=== PATIENT | female | born 1990 | race Caucasian/White ===

== ENCOUNTER 2018-08-30 20:52 | Inpatient (IN) | payer MEDICAID ==
[~2018-08-30] VITALS: Ht 162.6 cm; Wt 73.8 kg
[~2018-08-30 20:52] MED LIST: IBUP-1542 PO
[2018-08-30] MEDS ORDERED: LACTATED RINGER'S 1,000 ML IV SCH (21:44)
[2018-08-30 21:46] VITALS: Ht 162.6 cm; Wt 73.8 kg
--- NOTE | 2018-08-30 23:12 | TRIAGE ---
OB Triage Datetime Report Generated by CPN: 08/30/2018 23:12 Datetime: 08/30/2018 23:12 Stage of : OB Triage Datetime: 08/30/2018 21:46 Labor Evaluation Frequency: 4-5 Monitor Mode: External Duration (sec)2399: 60 Pattern: Normal: <= 5 Contractions in 10 Minutes Heart Rate FHR Baseline Rate: 145 Monitor Mode: External US FHR Baseline Changes: No Baseline Change Variability: Moderate 6-25 bpm Datetime: 08/30/2018 21:05 EGA: 28.5 Datetime: 08/30/2018 20:40 Time of Arrival: 08/30/2018 20:40 Arrived By: Wheelchair Arrived From: Home Chief Complaint: UC'S SINCE 14:30 Movement: Present Contractions: Irregular Time Contractions Began: 08/30/2018 14:30 Contractions: Q30MIN Rupture of Membranes: Denies Vaginal Bleeding: None Vaginal Discharge: Denies Recent Sexual Intercouse: Denies Abdominal Trauma: Not Applicable Patient Complaints: Contractions Time Provider Notified: 08/30/2018 21:40 Provider Notified: KARI
[2018-08-30] MEDS ORDERED: AMPICILLIN 2 GM/NS (PMX) 100 ML IV ONE (23:30)
--- NOTE | 2018-08-30 23:55 | HP ---
Date/Time of Note Date/Time of Note DATE: 08/30/18 TIME: 23:53 OB - History Hx of Present Free Text/Dictation 28-year-old 2 para 1 at 28 weeks and 5 days of gestation with estimated date of delivery November 14, 2018 Patient presents with chief complaint of uterine contractions She reports positive movement, denies any vaginal bleeding or leaking fluid Estimated Due Date: Nov 14, 2018 : 2 Para: 1 Care: Good Care Obstetrical Complications: Other (Cervical shortening) Medical Complications: None Past Family/Social History * Past Medical, Surgical, Family and Obstetric Histories reviewed from chart. OB Admission Exam Physical Exam HEENT: WNL Heart: Rhythm Normal Lungs: Clear, Equal Abdomen: WNL Extremities: Normal Reflexes: Normal Membranes: Intact Heart Rate: 140's Accelerations: Accelerations Present Decelerations: No Decelerations Varibility: Moderate Contractions on Admission: 6-10 Minutes Apart Intensity: Mild Last 72 hours Lab Results CBC & BMP 08/30/18 23:30 PROCEDURE: US biophysical profile. Transvaginal sonography of the cervix. CLINICAL INDICATION: Decreased motion. TECHNIQUE: Multiple sonographic images of the uterus were obtained. Transvaginal sonography of the cervix was also performed. The images were reviewed on a PACS workstation. COMPARISON: No prior studies are available for comparison. FINDINGS: There is a single live intrauterine gestation. heart rate is 148 beats per minute. The position is cephalic. The placenta is anterior grade 1 with no abruption or previa. The ALVIN is 17.4 cm. (Normal = 5-20 cm.) Cervical length is 2.2 cm. Breathing Movement: 2 Gross Body Movement: 2 Tone: 2 Qualitative Amniotic Fluid Volume: 2 TOTAL: 8 IMPRESSION: 1. The biophysical score is 8/8. 2. Cervical length is 2.2 cm. RPTAT: QQ .Pastor Antunez MD, MD Date Time Electronically viewed and signed by .Pastor Antunez MD, on 08/30/2018 22:47 .R/ CC: ABHISHEK PIERCE MD [phone] OB Assessment/Plan Reason for admission: labor, other (Cervical shortening 2.2 cm) Other plan: Admit to antepartum Betamethasone for lung maturity Antibiotic prophylaxis Urine culture to be done Perinatology consult Copies To: CC: CIERRA WOLFE MD ; ABHISHEK PIERCE MD Aug 30, 2018 23:55
[2018-08-30] MEDS: BETAMET NA PHOS/AC(6 MG/ML) 2 ML INJ SYG IM SCH (23:56)
[2018-08-31] MEDS: AMPICILLIN 1 GM/NS (PMX) 50 ML IV SCH ×2 (04:29→08:15)
[2018-08-31] MEDS ORDERED: PRENATAL VITAMIN PO SCH (09:00)
--- NOTE | 2018-08-31 11:23 | PERINOTE ---
Date/Time of Note Date/Time of Note DATE: 08/31/18 TIME: 11:19 Assessment/Recommendations Other Assessments Suspected labor, now without regular contractions Shortened cervix Recommendations: I agree with the patient admission and steroid treatment. I would complete the course of betamethasone I would discontinue the ampicillin, as the patient does not seem close to delivery I feel that the patient can be discharged to home, I have discussed with her and her partner the importance of reduced activity I would consider a repeat cervical length if the patient again complains of contractions. I would consider referring the patient to the Perinatology Office for ultrasound for EFW (not performed on this admission), unless this has been recently done Note that records regarding this were not available. OB Subjective Free Text/Dictaton Patient is a 28 Yr Old at 28W6D of gestation admitted for suspected labor. Patient reports UCs last night at home that abated in the hospital. She was not treated with a tocolytic medication. Imaging revealed a cervical length of 2.2cm. The patient received one dose of betamethasone and the second is scheduled for later today. HD# 2 IUP @ 28W6D Current Medications Current Medications Lactated Ringer's 1,000 ml @ 125 mls/hr Q8H IV Last administered on 08/30/18at 23:29; Admin Dose 125 MLS/HR; Start 08/30/18 at 21:44 Betamethasone Acet/Betameth SodPhos (Celestone Soluspan) 12 mg Q24H IM Last administered on 08/30/18at 23:56; Admin Dose 12 MG; Start 08/30/18 at 23:30; Stop 08/31/18 at 23:31 Ampicillin 50 ml @ 100 mls/hr Q4H IV Last administered on 08/31/18at 08:15; Admin Dose 100 MLS/HR; Start 08/31/18 at 03:30 Prenat Multivit/ Pershing/Iron/Folic Ac () 1 tab DAILY PO ; Start 08/31/18 at 09:00 Past Medical History Medical History: no pertinent history Surgical History: no surgical history MANAGER MEDIA History: no pertinent MANAGER MEDIA history Para: 1 : 2 LMP (Females 10-50): Family History Significant Family History: no pertinent family hx OB Admission Exam Physical Exam Vitals: BP: 128/60 P: 103 Heart: Rhythm Normal Lungs: Clear Abdomen: WNL Heart Rate: 130's Accelerations: Accelerations Present Decelerations: No Decelerations Varibility: Moderate Contractions on Admission: None Last 72 hours Lab Results CBC & BMP 08/30/18 23:30 Liver Function Test 08/30/18 23:30 Alanine Aminotransferase (ALT/SGPT) 19 Albumin 3.7 Alkaline Phosphatase 91 Aspartate Amino Transf (AST/SGOT) 25 Direct Bilirubin 0.00 Total Protein 7.3 Ultrasound Results BP 8/8 on 08/30 Copies To: CC: CIERRA WOLFE MD; ABHISHEK PIERCE MD ; KATYA STALEY MD Aug 31, 2018 11:23
[2018-08-31] MEDS ORDERED: ACETAMINOPHEN 325 MG TAB PO ONE (19:00)
[2018-08-31] MEDS: BETAMET NA PHOS/AC(6 MG/ML) 2 ML INJ SYG IM SCH (23:00)
--- NOTE | 2018-09-01 17:50 | DS ---
Date/Time of Note Date/Time of Note DATE: 09/01/18 TIME: 17:46 Obstetrical Discharge Record Final Diagnosis Final Diagnosis: not delivered Other Final Diagnosis 28-year-old 2 para 1 at 28 weeks and 5 days of gestation with estimated date of delivery November 14, 2018 Patient presented with labor and cervical shortening Patient received betamethasone for lung maturity Patient was seen by perinatologist and instructed to follow up with the perinatologist She was instructed regarding pelvic rest Patient instructed to follow up with her own OBGYN in 1-2 days Complications Other (Cervical shortenning) Condition on Discharge Physical Assessment Voiding: Yes Bowel Movement: Yes Breast: Soft, non-tender Fundus: Other (gravid) Calf Tenderness: No Patient Condition: Good Copies To: CC: CIERRA WOLFE MD ; ABHISHEK PIERCE MD Sep 01, 2018 17:50
== END 2018-08-31 23:20 | disposition home or self-care (01) | DRG 832 ==
LOC: OBT 20:52 → L-D 20:54 → OBT 23:14 → L-D 23:14
PROVIDERS: ADMIT Obstetrics & Gynecology; ATTEND Obstetrics & Gynecology
PROC: 4A1HXCZ Monitoring of Products of Conception, Cardiac Rate, External Approach (ICD-10-PCS; principal; 2018-08-30)
DX: O60.03 Preterm labor without delivery, third trimester (principal); O26.873 Cervical shortening, third trimester; Z3A.28 28 weeks gestation of pregnancy
CPT/HCPCS: 76815; 76817; 76818; 80053; 81001; 81003; 85025; 87086; G0463; J0290; J0702; J7120

== ENCOUNTER 2018-11-08 19:09 | Outpatient (CLI) | payer MEDICAID ==
[~2018-11-08] VITALS: Ht 152.4 cm; Wt 77.1 kg
[2018-11-08 19:45] VITALS: BP 116/75; PULSE 82; RESP 18
[2018-11-08] MEDS ORDERED: CALC600T24 PO (19:50)
[2018-11-08] MEDS ORDERED: FERR134T PO (19:50)
[2018-11-08] MEDS ORDERED: PREN-19 PO (19:50)
--- NOTE | 2018-11-08 22:29 | TRIAGE ---
OB Triage Datetime Report Generated by CPN: 11/08/2018 22:28 Datetime: 11/08/2018 21:51 Pain Assessment Pain Scale: 4 Pain Presence: Intermittent Pain Type: Contraction Pain Location: Abdomen Vaginal Exam Dilatation (cms): 3.0 Effacement (%): 70 Station: -2 Exam By: E Jas Membrane Status: Intact Amniotic Fluid Amount: None Amniotic Fluid Odor: None Vaginal Bleeding: None Cervix, Consistency: Soft Cervix, Position: Posterior Presentation 'A': Cephalic Datetime: 11/08/2018 21:40 Monitor Mode: External Quality: Mild Pattern: Normal: <= 5 Contractions in 10 Minutes Resting Tone [place]: Relaxed Heart Rate FHR Baseline Rate: 135 Monitor Mode: External US Variability: Moderate 6-25 bpm Accelerations: 15X15 Decelerations: None Category: Category I Datetime: 11/08/2018 21:11 Labor Evaluation Frequency: 3-10 Monitor Mode: External Duration (sec)2399: 30-60 Quality: Mild Pattern: Normal: <= 5 Contractions in 10 Minutes Resting Tone [place]: Relaxed Heart Rate FHR Baseline Rate: 130 Monitor Mode: External US FHR Baseline Changes: No Baseline Change Variability: Moderate 6-25 bpm Accelerations: 15X15 Decelerations: None Category: Category I Datetime: 11/08/2018 20:15 Stage of : OB Triage Monitor Mode: External Quality: Moderate Pattern: Normal: <= 5 Contractions in 10 Minutes Resting Tone [place]: Relaxed Heart Rate FHR Baseline Rate: 130 Monitor Mode: External US FHR Baseline Changes: No Baseline Change Variability: Moderate 6-25 bpm Accelerations: 15X15 Decelerations: None Category: Category I Datetime: 11/08/2018 20:04 Stage of : OB Triage Datetime: 11/08/2018 20:01 Stage of : OB Triage Labor Evaluation Frequency: 7 Monitor Mode: External Duration (sec)2399: 50-80 Quality: Moderate Pattern: Normal: <= 5 Contractions in 10 Minutes Resting Tone [place]: Relaxed Heart Rate FHR Baseline Rate: 130 Monitor Mode: External US FHR Baseline Changes: No Baseline Change Variability: Moderate 6-25 bpm Accelerations: 15X15 Decelerations: None Category: Category I Pain Assessment Pain Scale: 6 Pain Presence: Intermittent Pain Type: Contraction Pain Location: Abdomen Vaginal Exam Dilatation (cms): 2.5 Effacement (%): 70 Station: -2 Exam By: Ernesto Mark Membrane Status: Intact Vaginal Bleeding: Scant Cervix, Consistency: Soft Cervix, Position: Posterior Presentation 'A': Cephalic Datetime: 11/08/2018 19:35 Time of Arrival: 11/08/2018 19:00 EGA: 38.5 Arrived By: Wheelchair Arrived From: Home Chief Complaint: c/o irreg ucs since am, occas vag pressure, brown discharge yesterday after S VE by (1cm), and urinary frequency Movement: Present Contractions: Irregular Time Contractions Began: 11/08/2018 09:00 Contractions: q5-30 Rupture of Membranes: Denies Vaginal Bleeding: Scant Vaginal Discharge: Present Recent Sexual Intercouse: Denies Abdominal Trauma: Not Applicable Patient Complaints: Contractions Time Provider Notified: 11/08/2018 20:03 Provider Notified: Dr Hale Initial Plan: EFM,SVE,UA Datetime: 11/08/2018 19:18 Stage of : OB Triage Maternal Assessment Level of Consciousness: Fully Conscious Headache: Denies Blurred Vision: No Nausea/Vomiting: Denies RUQ Epigastric Pain: Denies Facial Edema: None Monitor Mode: External Resting Tone [place]: Relaxed Heart Rate FHR Baseline Rate: 140 Monitor Mode: External US Pain Assessment Pain Scale: 6 Pain Presence: Intermittent Pain Type: Cramping; Pressure Pain Location: Abdomen; Perineum Datetime: 08/31/2018 22:50 Labor Evaluation Frequency: X0 Monitor Mode: External Duration (sec)2399: X0 Pattern: Normal: <= 5 Contractions in 10 Minutes Resting Tone [place]: Relaxed Heart Rate FHR Baseline Rate: 140 Monitor Mode: External US Variability: Moderate 6-25 bpm Accelerations: 15X15 Decelerations: None Category: Category I Datetime: 08/31/2018 22:27 Stage of : Antepartum Temperature Route: Oral Pain Assessment Pain Scale: 0 Pain Presence: None/Denies Pain Type: N/A Datetime: 08/31/2018 22:26 Monitor Mode: External Contraction Comments: APPLIED Monitor Mode: External US Comments: APPLIED Datetime: 08/31/2018 20:25 Stage of : Antepartum Assessment Type: Ongoing Assessment Maternal Assessment Level of Consciousness: Fully Conscious DTR's/Clonus: DTRs 2+; No Clonus Headache: Denies Blurred Vision: No Respiratory Effort: Unlabored; Regular Rhythm; Equal Expansion Breath Sounds, Left: Clear and Equal Breath Sounds, Right: Clear and Equal Nausea/Vomiting: Denies RUQ Epigastric Pain: Denies Lower Extremities Edema: None Degree: None Upper Extremities Edema: None Degree: None Facial Edema: None Fall Risk Assessment History of Falling: (0) No Secondary Diagnosis: (0) No Ambulatory Aid: (0) Bedrest/Nurse Assist IV Therapy: (0) No Gait: (0) Normal/Bedrest/Immobile Mental Status: (0) Oriented to Own Ability Fall Score: 0 Fall Risk Score Definition: No Risk: No action required Pain Assessment Pain Scale: 0 Pain Presence: None/Denies Pain Type: N/A Datetime: 08/31/2018 18:32 Labor Evaluation Frequency: 0 Monitor Mode: External Pattern: Normal: <= 5 Contractions in 10 Minutes Resting Tone [place]: Relaxed Heart Rate FHR Baseline Rate: 135 Monitor Mode: External US Variability: Moderate 6-25 bpm Accelerations: 10X10 Decelerations: None Category: Category I Pain Assessment Pain Scale: 0 Pain Presence: None/Denies Pain Type: N/A Pain Goal: 3 Pain Relief Measures: Comfort Measures Datetime: 08/31/2018 17:32 Labor Evaluation Frequency: 0 Monitor Mode: External Pattern: Normal: <= 5 Contractions in 10 Minutes Resting Tone [place]: Relaxed Heart Rate FHR Baseline Rate: 125 Variability: Moderate 6-25 bpm Accelerations: 10X10 Decelerations: None Category: Category I Pain Assessment Pain Scale: 0 Pain Presence: None/Denies Pain Type: N/A Pain Goal: 3 Pain Relief Measures: Comfort Measures Datetime: 08/31/2018 16:31 Monitor Mode: External Pattern: Normal: <= 5 Contractions in 10 Minutes Resting Tone [place]: Relaxed Heart Rate FHR Baseline Rate: 135 Monitor Mode: External US Variability: Moderate 6-25 bpm Accelerations: 10X10 Decelerations: None Category: Category I Pain Assessment Pain Scale: 0 Pain Presence: None/Denies Pain Type: N/A Pain Goal: 3 Pain Relief Measures: Comfort Measures Datetime: 08/31/2018 15:31 Labor Evaluation Frequency: 0 Monitor Mode: External Pattern: Normal: <= 5 Contractions in 10 Minutes Resting Tone [place]: Relaxed Heart Rate FHR Baseline Rate: 135 Monitor Mode: External US Variability: Moderate 6-25 bpm Accelerations: 10X10 Decelerations: None Category: Category I Pain Assessment Pain Scale: 0 Pain Presence: None/Denies Pain Type: N/A Pain Goal: 3 Pain Relief Measures: Comfort Measures Datetime: 08/31/2018 14:29 Labor Evaluation Frequency: 0 Monitor Mode: External Pattern: Normal: <= 5 Contractions in 10 Minutes Resting Tone [place]: Relaxed Heart Rate FHR Baseline Rate: 135 Monitor Mode: External US Variability: Moderate 6-25 bpm Accelerations: 10X10 Decelerations: None Category: Category I Pain Assessment Pain Scale: 0 Pain Presence: None/Denies Pain Type: N/A Pain Goal: 3 Pain Relief Measures: Comfort Measures Datetime: 08/31/2018 13:43 Labor Evaluation Frequency: 0 Monitor Mode: External Pattern: Normal: <= 5 Contractions in 10 Minutes Resting Tone [place]: Relaxed Heart Rate FHR Baseline Rate: 135 Monitor Mode: External US Variability: Moderate 6-25 bpm Accelerations: 10X10 Decelerations: None Category: Category I Pain Assessment Pain Scale: 0 Pain Presence: None/Denies Pain Type: N/A Pain Goal: 3 Pain Relief Measures: Comfort Measures Datetime: 08/31/2018 12:43 Labor Evaluation Frequency: 0 Monitor Mode: External Pattern: Normal: <= 5 Contractions in 10 Minutes Resting Tone [place]: Relaxed Heart Rate FHR Baseline Rate: 135 Monitor Mode: External US Variability: Moderate 6-25 bpm Accelerations: 10X10 Decelerations: None Category: Category I Pain Assessment Pain Scale: 0 Pain Presence: None/Denies Pain Type: N/A Pain Goal: 3 Pain Relief Measures: Comfort Measures Datetime: 08/31/2018 11:37 Labor Evaluation Frequency: 0 Monitor Mode: External Pattern: Normal: <= 5 Contractions in 10 Minutes Resting Tone [place]: Relaxed Heart Rate FHR Baseline Rate: 135 Monitor Mode: External US Variability: Moderate 6-25 bpm Accelerations: 10X10 Decelerations: None Category: Category I Pain Assessment Pain Scale: 0 Pain Presence: None/Denies Pain Type: N/A Pain Goal: 3 Pain Relief Measures: Comfort Measures Datetime: 08/31/2018 10:50 Labor Evaluation Frequency: 0 Monitor Mode: External Pattern: Normal: <= 5 Contractions in 10 Minutes Resting Tone [place]: Relaxed Heart Rate FHR Baseline Rate: 140 Monitor Mode: External US Variability: Moderate 6-25 bpm Accelerations: 10X10 Decelerations: None Category: Category I Pain Assessment Pain Scale: 0 Pain Presence: None/Denies Pain Type: N/A Pain Goal: 3 Pain Relief Measures: Comfort Measures Datetime: 08/31/2018 10:28 Stage of : Antepartum Datetime: 08/31/2018 09:50 Labor Evaluation Frequency: 0 Monitor Mode: External Pattern: Normal: <= 5 Contractions in 10 Minutes Resting Tone [place]: Relaxed Heart Rate FHR Baseline Rate: 135 Monitor Mode: External US Variability: Moderate 6-25 bpm Accelerations: 10X10 Decelerations: None Category: Category I Pain Assessment Pain Scale: 0 Pain Presence: None/Denies Pain Type: N/A Pain Goal: 3 Pain Relief Measures: Comfort Measures Datetime: 08/31/2018 08:46 Labor Evaluation Frequency: 0 Monitor Mode: External Pattern: Normal: <= 5 Contractions in 10 Minutes Resting Tone [place]: Relaxed Heart Rate FHR Baseline Rate: 145 Monitor Mode: External US Variability: Moderate 6-25 bpm Accelerations: 10X10 Decelerations: None Category: Category I Pain Assessment Pain Scale: 0 Pain Presence: None/Denies Pain Type: N/A Pain Goal: 3 Pain Relief Measures: Comfort Measures Datetime: 08/31/2018 07:45 Assessment Type: Ongoing Assessment Maternal Assessment Level of Consciousness: Fully Conscious DTR's/Clonus: DTRs 2+; No Clonus Headache: Denies Blurred Vision: No Respiratory Effort: Unlabored; Regular Rhythm; Equal Expansion Breath Sounds, Left: Clear and Equal Breath Sounds, Right: Clear and Equal Nausea/Vomiting: Denies RUQ Epigastric Pain: Denies Facial Edema: None Fall Risk Assessment History of Falling: (0) No Secondary Diagnosis: (0) No Ambulatory Aid: (0) Bedrest/Nurse Assist Gait: (0) Normal/Bedrest/Immobile Mental Status: (0) Oriented to Own Ability Labor Evaluation Frequency: 0 Monitor Mode: External Pattern: Normal: <= 5 Contractions in 10 Minutes Resting Tone [place]: Relaxed Heart Rate FHR Baseline Rate: 135 Monitor Mode: External US Variability: Moderate 6-25 bpm Accelerations: 10X10 Decelerations: None Category: Category I Datetime: 08/31/2018 07:29 Stage of : Antepartum Datetime: 08/31/2018 06:39 Stage of : Antepartum Maternal Assessment Level of Consciousness: Fully Conscious Labor Evaluation Frequency: x2 Monitor Mode: External Duration (sec)2399: 40-60 Heart Rate FHR Baseline Rate: 130 Monitor Mode: External US Variability: Moderate 6-25 bpm Accelerations: 15X15 Decelerations: None Pain Assessment Pain Scale: 0 Pain Presence: None/Denies Pain Type: N/A Pain Goal: 0 Datetime: 08/31/2018 05:39 Stage of : Antepartum Maternal Assessment Level of Consciousness: Fully Conscious Labor Evaluation Frequency: x2 Monitor Mode: External Duration (sec)2399: 40-60 Heart Rate FHR Baseline Rate: 130 Monitor Mode: External US Variability: Moderate 6-25 bpm Accelerations: 15X15 Decelerations: None Pain Assessment Pain Scale: 0 Pain Presence: None/Denies Pain Type: N/A Pain Goal: 0 Datetime: 08/31/2018 04:25 Stage of : Antepartum Maternal Assessment Level of Consciousness: Fully Conscious Headache: Denies Nausea/Vomiting: Denies RUQ Epigastric Pain: Denies Temperature Route: Oral Labor Evaluation Frequency: none Monitor Mode: External Heart Rate FHR Baseline Rate: 130 Monitor Mode: External US Variability: Moderate 6-25 bpm Accelerations: 15X15 Decelerations: None Pain Assessment Pain Scale: 0 Pain Presence: None/Denies Pain Type: N/A Pain Goal: 0 Datetime: 08/31/2018 03:39 Stage of : Antepartum Maternal Assessment Level of Consciousness: Fully Conscious Labor Evaluation Frequency: none Monitor Mode: External Heart Rate FHR Baseline Rate: 125 Monitor Mode: External US Variability: Moderate 6-25 bpm Accelerations: 15X15 Decelerations: None Pain Assessment Pain Scale: 0 Pain Presence: None/Denies Pain Type: N/A Pain Goal: 0 Datetime: 08/31/2018 02:39 Stage of : Antepartum Maternal Assessment Level of Consciousness: Fully Conscious DTR's/Clonus: DTRs 2+; No Clonus Headache: Denies Breath Sounds, Left: Clear and Equal Breath Sounds, Right: Clear and Equal Nausea/Vomiting: Denies RUQ Epigastric Pain: Denies Labor Evaluation Frequency: none Monitor Mode: External Heart Rate FHR Baseline Rate: 125 Monitor Mode: External US Variability: Moderate 6-25 bpm Accelerations: 15X15 Decelerations: None Pain Assessment Pain Scale: 0 Pain Presence: None/Denies Pain Type: N/A Pain Goal: 0 Datetime: 08/31/2018 00:48 Stage of : Antepartum Assessment Type: Admission Assessment Vaginal Bleeding: None Maternal Assessment Level of Consciousness: Fully Conscious DTR's/Clonus: DTRs 2+; No Clonus Headache: Denies Blurred Vision: No Respiratory Effort: Unlabored; Regular Rhythm; Equal Expansion Breath Sounds, Left: Clear and Equal Breath Sounds, Right: Clear and Equal Nausea/Vomiting: Denies RUQ Epigastric Pain: Denies Lower Extremities Edema: None Degree: None Upper Extremities Edema: None Degree: None Facial Edema: None Fall Risk Assessment History of Falling: (0) No Secondary Diagnosis: (0) No Ambulatory Aid: (0) Bedrest/Nurse Assist IV Therapy: (20) Yes Gait: (0) Normal/Bedrest/Immobile Mental Status: (0) Oriented to Own Ability Fall Score: 20 Fall Risk Score Definition: No Risk: No action required Labor Evaluation Frequency: none Monitor Mode: External Heart Rate FHR Baseline Rate: 125 Monitor Mode: External US Variability: Moderate 6-25 bpm Accelerations: 15X15 Decelerations: None Category: Category I Pain Assessment Pain Scale: 0 Pain Presence: None/Denies Pain Type: N/A Pain Goal: 0 Datetime: 08/30/2018 23:22 Contraction Comments: patient denies uc's Datetime: 08/30/2018 21:05 Time of Arrival: 08/31/2018 00:15 EGA: 28.6
== END 2018-11-08 22:10 | disposition home or self-care (01) ==
LOC: OBT 19:09 → L-D 19:10 → OBT 22:10
PROVIDERS: ATTEND Obstetrics & Gynecology
DX: O47.1 False labor at or after 37 completed weeks of gestation (principal); Z3A.38 38 weeks gestation of pregnancy
CPT/HCPCS: 81003; Z7500; G0463

== ENCOUNTER 2018-11-13 22:10 | Inpatient (IN) | payer MEDICAID ==
--- NOTE | 2018-11-08 22:54 | PN ---
Triage Information Date/Time Reason for visit: Uterine contractions Weeks of Gestation 38 10/08 /Para Diabetes: none Hypertention: none Disposition: Discharge Assessment/Plan r/o labor IUOP 38 10/08 sve 3/80/0 pain 08/11 observation, no cervical ayala plan to discharge home and 1 week outpatient follow up Labor percationts are given CARMENCITA LANGLEY MD Nov 08, 2018 22:54
[~2018-11-13] VITALS: Ht 154.9 cm; Wt 78.8 kg
[~2018-11-13 22:10] MED LIST changes: +CALC600T24 PO; +FERR134T PO; -IBUP-1542 PO; +PREN-19 PO
[2018-11-13 22:47] VITALS: BP 123/85; PULSE 105; RESP 16
[2018-11-13] MEDS ORDERED: LACTATED RINGER'S 1,000 ML IV SCH (23:09)
[2018-11-13] MEDS ORDERED: LACTATED RINGER'S 1,000 ML IV PRN (23:09)
[2018-11-13] MEDS ORDERED: IBUPROFEN 600 MG TAB PO PRN (23:30)
[2018-11-13] MEDS ORDERED: MINERAL OIL LIGHT 10 ML VIAL TOP ONE (23:30)
[2018-11-13] MEDS ORDERED: METHYLERGONOVINE 0.2 MG INJ IM PRN (23:30)
[2018-11-13] MEDS ORDERED: BUTORPHANOL 2 MG INJ IV PRN ×2 (23:30)
[2018-11-13] MEDS ORDERED: LIDOCAINE 1% (MPF) 30 ML INJ INJ PRN (23:30)
[2018-11-13] MEDS ORDERED: OXYTOCIN 30 UNITS/LR 500 ML IV SCH ×2 (23:30)
[2018-11-13] MEDS ORDERED: OXYTOCIN 30 UNITS/LR 500 ML IV PRN (23:30)
[2018-11-13] MEDS ORDERED: CARBOPROST 250 MCG INJ IM PRN (23:30)
[2018-11-13] MEDS ORDERED: MISOPROSTOL 200 MCG TAB PR PRN (23:30)
--- NOTE | 2018-11-14 01:31 | PREAC ---
Date/Time of Note Date/Time of Note DATE: 11/14/18 TIME: 01:30 Anesthesia Eval and Record Evaluation Time Pre-Procedure Interview DATE: 11/14/18 TIME: 01:30 Age 28 Sex female NPO: 8 hrs Preoperative diagnosis LABOR PAIN Planned procedure LABOR EPIDURAL Past Medical History Past Medical History: Includes : : (2), Para: (1), Gestational age: (40 WEEKS) Surgery & Anesthesia Issues No known issue Meds Anticoagulation: No Beta Luis Enrique within 24 hr: No Reason Beta Luis Enrique not given: Pt. not on B-Luis Enrique Reported Medications Vit #76/Iron,Carb/FA (Prenatabs Rx Tablet) 1 Each Tablet, 1 EACH PO DAILY, TAB 11/08/18 Ferrous Sulfate (Iron) 134 Mg Tablet, 134 MG PO DAILY, TAB 11/08/18 Calcium Carbonate* (Calcium Carbonate*) 600 MG Ca Tab, 600 MG PO DAILY, TAB 11/08/18 Current Medications Lactated Ringer's 1,000 ml @ 125 mls/hr Q8H IV Last administered on 11/14/18at 00:11; Admin Dose 125 MLS/HR; Start 11/13/18 at 23:09 Butorphanol Tartrate (Stadol) 1 mg Q2H PRN IV .PAIN SCALE 1-5; Start 11/13/18 at 23:30 Butorphanol Tartrate (Stadol) 2 mg Q2H PRN IV .PAIN SCALE 6-10; Start 11/13/18 at 23:30 Lidocaine (Xylocaine 1% (Mpf)) 30 ml ONCE PRN INJ .EPISIOTOMY; Start 11/13/18 at 23:30 Oxytocin/Lactated Ringer's 500 ml @ 500 mls/hr ONCE POST IV ; Start 11/13/18 at 23:30 Oxytocin/Lactated Ringer's 500 ml @ 125 mls/hr POST IV ; Start 11/13/18 at 23:30 Ibuprofen (Motrin) 600 mg ONCE PRN PO .PAIN 1-5; Start 11/13/18 at 23:30 Lactated Ringer's 1,000 ml @ 2,000 mls/hr Q30M PRN IV .ANESTHESIA; Start 11/13/18 at 23:09 Oxytocin/Lactated Ringer's 500 ml @ 0 mls/hr ONCE PRN IV .VAGINAL BLEEDING; Start 11/13/18 at 23:30 Methylergonovine Maleate (Methergine) 0.2 mg ONCE PRN IM .VAGINAL BLEEDING; Start 11/13/18 at 23:30 Carboprost Tromethamine (Hemabate) 250 mcg ONCE PRN IM .VAGINAL BLEEDING; Start 11/13/18 at 23:30 Misoprostol (Cytotec) 1,000 mcg ONCE PRN FL .VAGINAL BLEEDING; Start 11/13/18 at 23:30 Meds reviewed: Yes Allergies Coded Allergies: No Known Allergy (Unverified , 11/13/18) Allergies Reviewed: Yes Labs/Studies Labs Reviewed: Reviewed by anesthesiologist Result Diagram: 11/14/18 0005 Laboratory Tests 11/14/18 00:05 Blood Bank Test 11/14/18 00:05 Blood Type O POSITIVE Rh Immune Globulin Candidate NO test: N/A Pre-procedure Exam Last vitals Vital Signs Date Temp Pulse Resp B/P (MAP) Pulse Ox O2 O2 Flow FiO2 Time Delivery Rate 11/13/18 97.8 105 16 123/85 Room Air 22:47 (98) Airway: Adequate mouth opening, Adequate thyromental dist Mallampati: Mallampati II Teeth: Normal Lung: Normal Heart: Normal ASA Physical Status ASA physical status: 2 Emergency: None Planned Anesthetic Neuraxial: Epidural Planned Pain Management Epidural Pre-operative Attestations Prior to commencing anesthesia and surgery, the patient was re-evaluated, there was verification of: *The patient's identity *The results of appropriate recent lab work and preoperative vital signs *The above evaluation not changing prior to induction *Anesthetic plan, risk benefits, alternative and complications discussed with patient/family; questions answered; patient/family understands, accepts and wishes to proceed. Lit Patel M.D. Nov 14, 2018 01:31
[2018-11-14] MEDS ORDERED: FENTAnyl 2MCG/ML-ROPIV 0.2% 100 ML ONE (01:33)
--- NOTE | 2018-11-14 02:05 | PAC ---
Date/Time of Note Date/Time of Note DATE: 11/14/18 TIME: 02:05 Post-Anesthesia Notes Post-Anesthesia Note Last documented vital signs Vital Signs Date Temp Pulse Resp B/P (MAP) Pulse Ox O2 O2 Flow FiO2 Time Delivery Rate 11/13/18 97.8 105 16 123/85 Room Air 22:47 (98) Activity: WNL Respiratory function: WNL Cardiovascular function: WNL Mental status: Baseline Pain reasonably controlled: Yes Hydration appropriate: Yes Nausea/Vomiting absent: Yes Lit Patel M.D. Nov 14, 2018 02:05
[2018-11-14] MEDS ORDERED: NALOXONE (0.4 MG/ML) INJ IV PRN (02:30)
[2018-11-14] MEDS ORDERED: TRIMETHOBENZAMIDE 100 MG/ML VIAL IM PRN (02:30)
[2018-11-14] MEDS ORDERED: FENTAnyl 2MCG/ML-ROPIV 0.2% 100 ML BAG EPI SCH (02:30)
[2018-11-14] MEDS ORDERED: ONDANSETRON 4 MG INJ IV PRN ×2 (02:30→10:00)
[2018-11-14] MEDS ORDERED: DIPHENHYDRAMINE 50 MG INJ IV PRN (02:30)
--- NOTE | 2018-11-14 03:30 | TRIAGE ---
OB Triage Datetime Report Generated by CPN: 11/14/2018 03:30 Datetime: 11/14/2018 02:59 Maternal Assessment Level of Consciousness: Keenly Alert, Responsive Labor Evaluation Frequency: 5-7 Monitor Mode: External Duration (sec)2399: 60-80 Quality: Moderate Pattern: Normal: <= 5 Contractions in 10 Minutes Resting Tone [place]: Relaxed Heart Rate FHR Baseline Rate: 155 Monitor Mode: External US Variability: Moderate 6-25 bpm Accelerations: Prolonged Decelerations: None Category: Category I Datetime: 11/14/2018 02:34 Comments: LOSS OF CONTACT; PT STATES BABY IS MOVING A LOT Datetime: 11/14/2018 02:31 Comments: LOSS OF CONTACT; PT STATES BABY IS MOVING A LOT Datetime: 11/14/2018 02:30 Maternal Assessment Level of Consciousness: Keenly Alert, Responsive Labor Evaluation Frequency: 2-4 Monitor Mode: External Duration (sec)2399: 40-80 Quality: Moderate Pattern: Normal: <= 5 Contractions in 10 Minutes Resting Tone [place]: Relaxed Heart Rate FHR Baseline Rate: 160 Monitor Mode: External US FHR Baseline Changes: Tachycardia Variability: Moderate 6-25 bpm Accelerations: Prolonged Decelerations: None Category: Category II Datetime: 11/14/2018 02:22 Maternal Assessment Level of Consciousness: Keenly Alert, Responsive Datetime: 11/14/2018 02:20 Maternal Assessment Level of Consciousness: Keenly Alert, Responsive Datetime: 11/14/2018 02:18 Maternal Assessment Level of Consciousness: Keenly Alert, Responsive Datetime: 11/14/2018 02:14 Maternal Assessment Level of Consciousness: Keenly Alert, Responsive Datetime: 11/14/2018 02:13 Vaginal Exam Dilatation (cms): 5.0 Datetime: 11/14/2018 01:59 Labor Evaluation Frequency: 4-5 Monitor Mode: External Duration (sec)2399: 60-90 Quality: Moderate Pattern: Normal: <= 5 Contractions in 10 Minutes Resting Tone [place]: Relaxed Heart Rate FHR Baseline Rate: 160 Monitor Mode: External US Variability: Minimal - Undetectable to <=5 bpm Accelerations: 15X15 Decelerations: Late Category: Category II Datetime: 11/14/2018 01:58 Maternal Assessment Level of Consciousness: Keenly Alert, Responsive Datetime: 11/14/2018 01:56 Maternal Assessment Level of Consciousness: Keenly Alert, Responsive Datetime: 11/14/2018 01:54 Maternal Assessment Level of Consciousness: Keenly Alert, Responsive Datetime: 11/14/2018 01:53 Maternal Assessment Level of Consciousness: Keenly Alert, Responsive Datetime: 11/14/2018 01:52 Maternal Assessment Level of Consciousness: Keenly Alert, Responsive Datetime: 11/14/2018 01:50 Maternal Assessment Level of Consciousness: Keenly Alert, Responsive Datetime: 11/14/2018 01:48 Maternal Assessment Level of Consciousness: Keenly Alert, Responsive Datetime: 11/14/2018 01:46 Maternal Assessment Level of Consciousness: Keenly Alert, Responsive Datetime: 11/14/2018 01:44 Maternal Assessment Level of Consciousness: Keenly Alert, Responsive Datetime: 11/14/2018 01:43 Comments: LOSS OF CONTACT DUE TO EPIDURAL PROCEDURE. PT STATES SHE HAS MOVEMENT Datetime: 11/14/2018 01:41 Maternal Assessment Level of Consciousness: Keenly Alert, Responsive Datetime: 11/14/2018 01:40 Maternal Assessment Level of Consciousness: Keenly Alert, Responsive Datetime: 11/14/2018 01:37 Maternal Assessment Level of Consciousness: Keenly Alert, Responsive Datetime: 11/14/2018 01:00 Labor Evaluation Frequency: 4-5 Monitor Mode: External Duration (sec)2399: 60-90 Quality: Moderate Pattern: Normal: <= 5 Contractions in 10 Minutes Resting Tone [place]: Relaxed Heart Rate FHR Baseline Rate: 145 Monitor Mode: External US Variability: Moderate 6-25 bpm Accelerations: 15X15 Decelerations: None Category: Category I Datetime: 11/14/2018 00:19 Time of Arrival: 11/14/2018 00:19 EGA: 40.1 Datetime: 11/14/2018 00:05 Stage of : Labor Assessment Type: Admission Assessment Time of Arrival: 11/13/2018 22:04 EGA: 40.0 Arrived By: Ambulatory Arrived From: Home Chief Complaint: c/o occas ucs and states "I'm worried because I'm past my due date" Movement: Present Contractions: Irregular Time Contractions Began: 11/13/2018 08:00 Contractions: q10-15 Rupture of Membranes: Denies Vaginal Bleeding: None Vaginal Discharge: Denies Recent Sexual Intercouse: Denies Abdominal Trauma: Not Applicable Patient Complaints: Contractions Time Provider Notified: 11/13/2018 23:10 Provider Notified: Dr Greco Initial Plan: EFM,SVE Maternal Assessment Level of Consciousness: Keenly Alert, Responsive DTR's/Clonus: DTRs 2+; No Clonus Headache: Denies Blurred Vision: No Respiratory Effort: Unlabored; Regular Rhythm; Equal Expansion Breath Sounds, Left: Clear and Equal Breath Sounds, Right: Clear and Equal Nausea/Vomiting: Denies RUQ Epigastric Pain: Denies Lower Extremities Edema: None Upper Extremities Edema: None Facial Edema: None Fall Risk Assessment History of Falling: (0) No Secondary Diagnosis: (0) No Ambulatory Aid: (0) Bedrest/Nurse Assist IV Therapy: (0) No Gait: (0) Normal/Bedrest/Immobile Mental Status: (0) Oriented to Own Ability Fall Score: 0 Fall Risk Score Definition: No Risk: No action required Labor Evaluation Frequency: 4-6 Duration (sec)2399: 40-60 Quality: Moderate Pattern: Normal: <= 5 Contractions in 10 Minutes Resting Tone [place]: Relaxed Heart Rate FHR Baseline Rate: 145 Variability: Moderate 6-25 bpm Accelerations: 15X15 Decelerations: None Category: Category I Pain Assessment Pain Scale: 5 Pain Presence: Intermittent Pain Type: Contraction Pain Location: Abdomen Pain Goal: 0 Vaginal Exam Dilatation (cms): 5.0 Effacement (%): 80 Station: -2 Membrane Status: Intact Datetime: 11/13/2018 23:08 Stage of : OB Triage Labor Evaluation Frequency: 10-15 Monitor Mode: External Duration (sec)2399: 60 Quality: Mild Pattern: Normal: <= 5 Contractions in 10 Minutes Resting Tone [place]: Relaxed Heart Rate FHR Baseline Rate: 140 Monitor Mode: External US FHR Baseline Changes: No Baseline Change Variability: Moderate 6-25 bpm Accelerations: 15X15 Decelerations: None Category: Category I Vaginal Exam Dilatation (cms): 5.0 Effacement (%): 80 Station: -2 Exam By: Ernesto Mark Membrane Status: Intact Vaginal Bleeding: Scant Cervix, Consistency: Soft Cervix, Position: Posterior Presentation 'A': Cephalic Datetime: 11/08/2018 19:35 EGA: 39.2 Datetime: 08/31/2018 20:25 Fall Score: 0 Fall Risk Score Definition: No Risk: No action required Datetime: 08/31/2018 00:48 Fall Score: 20 Fall Risk Score Definition: No Risk: No action required Datetime: 08/30/2018 21:05 EGA: 29.3
[2018-11-14] MEDS ORDERED: OXYTOCIN 30 UNITS/LR 500 ML IV SCH ×2 (08:00→09:40)
--- NOTE | 2018-11-14 09:40 | PREOPHP ---
DATE OF ADMISSION: 11/13/2018 HISTORY OF PRESENT ILLNESS: Ms. Melissa Weston is a 28-year-old 2, para 1, EDC 11/13/2018 . Her at 40 weeks and 1 day gestational age, presented to triage early this morning in lab or. She was 5 cm dilated. She reports of contractions since last night. She denies any vaginal ble eding or discharge. Her care took place at [facility]. PAST MEDICAL HISTORY: None. MEDICATIONS: vitamins. PAST SURGICAL HISTORY: None. OBSTETRICAL HISTORY: x1 vaginal delivery. GYNECOLOGIC HISTORY: 12, regular 3 to 4 days. Denies any sexually transmitted infections. Sexually active with 1 partner. SOCIAL HISTORY: Denies any smoking, drugs or alcohol. FAMILY HISTORY: None. REVIEW OF SYSTEMS: All within normal except history of present illness. PHYSICAL EXAMINATION: HEENT: Within normal. LUNGS: CTA bilateral. CARDIOVASCULAR: S1, S2, regular rhythm. ABDOMEN: Gravid, nontender. Negative CVA bilateral. EXTREMITIES: Negative. No calf tenderness. PELVIC: Vaginal exam 580 -2. heart rate category 1. [place] regular contractions. Estimated fe matty weight of approximately 4200 grams. ASSESSMENT: Intrauterine at 40 weeks and 1 day gestational age, in labor. PLAN: Anticipated vaginal delivery. Risks, benefits and alternatives explained secondary to shoulde r dystocia. Dictated By: CIERRA GILMORE/SUZANNA Conf#: [id number] DID#: [id number]
--- NOTE | 2018-11-14 09:40 | LDN ---
Date/Time of Note Date/Time of Note DATE: 11/14/18 TIME: 09:39 Delivery Summary Weeks of Gestation 40 Placenta Delivered: Spontaneously Perineal laceration: 1 Laceration repair: 1st degreee perineal laceration repair with 3-0 chromic Anesthesia type: Epidural Estimated blood loss: 200 Sponge & Needle done & correct: Yes All needle counts correct: Yes Any foreign bodies felt in the: No Infant Delivery Information Sex Infant Sex: male Apgars 1 Minute: 9 5 Minute: 9 Suctioning Nose & mouth suctioned at clarissa: No Delee suction performed: No Umbilical Cord Umbilical cord with: 3 Vessels Cord presentations: no nuchal cord Cord Blood was obtained: Yes CIERRA WOLFE MD Nov 14, 2018 09:40
[2018-11-14] MEDS ORDERED: NACL 0.9% 3 ML SYG IV SCH (10:00)
[2018-11-14] MEDS ORDERED: WITCH HAZEL/GLYCERIN PAD PR PRN (10:00)
[2018-11-14] MEDS ORDERED: OXYTOCIN 30 UNITS/LR 500 ML IV PRN (10:00)
[2018-11-14] MEDS ORDERED: CARBOPROST 250 MCG INJ IM PRN (10:00)
[2018-11-14] MEDS ORDERED: ACETAMINOPHEN 325 MG TAB PO PRN (10:00)
[2018-11-14] MEDS ORDERED: SENNA/DOCUSATE NA (8.6MG/50MG) TAB PO PRN (10:00)
[2018-11-14] MEDS ORDERED: LANOLIN HPA 1 PKT TOP PRN (10:00)
[2018-11-14] MEDS ORDERED: OXYCODONE/ASPIRIN (4.88/325) TAB PO PRN ×2 (10:00)
[2018-11-14] MEDS ORDERED: MISOPROSTOL 200 MCG TAB PR PRN (10:00)
[2018-11-14] MEDS ORDERED: METHYLERGONOVINE 0.2 MG INJ IM PRN (10:00)
[2018-11-14 11:45] VITALS: BP 137/82; PULSE 76; RESP 17
[2018-11-14] MEDS: IBUPROFEN 600 MG TAB PO SCH ×2 (12:00→18:05)
[2018-11-14 16:00] VITALS: BP 118/69; PULSE 78; RESP 18
[2018-11-14 19:40] VITALS: BP 121/71; PULSE 64; RESP 18
[2018-11-14] MEDS: SENNA/DOCUSATE NA (8.6MG/50MG) TAB PO SCH (21:17)
[2018-11-15] MEDS: IBUPROFEN 600 MG TAB PO SCH ×4 (00:06→18:07)
[2018-11-15 03:34] VITALS: BP 94/53; PULSE 59; RESP 18
[2018-11-15 08:00] VITALS: BP 99/56; PULSE 66; RESP 18
[2018-11-15] MEDS: SENNA/DOCUSATE NA (8.6MG/50MG) TAB PO SCH ×2 (09:30→21:02)
[2018-11-15 16:00] VITALS: BP_SYST 111; BP_SYST 123; BP_DIAS 64; BP_DIAS 87; PULSE 65; PULSE 73; RESP 18
--- NOTE | 2018-11-15 16:46 | QN ---
Documentation Comment PP note had B.M vss afebrile fundus firm lochia min calf neg for tenderness A stable P home in am AILEEN HUI MD Nov 15, 2018 16:46
[2018-11-15 19:40] VITALS: BP 121/73; PULSE 64; RESP 17
[2018-11-16] MEDS: IBUPROFEN 600 MG TAB PO SCH ×3 (00:41→11:26)
[2018-11-16 03:51] VITALS: BP 116/61; PULSE 68; RESP 17
[2018-11-16 07:30] VITALS: BP 121/74; PULSE 70; RESP 18
[2018-11-16] MEDS: SENNA/DOCUSATE NA (8.6MG/50MG) TAB PO SCH (08:42)
--- NOTE | 2018-11-16 12:12 | DS ---
Date/Time of Note Date/Time of Note DATE: 11/16/18 TIME: 12:11 Discharge Summary Admission/Discharge Info Admit Date/Time Nov 13, 2018 at 23:00 Discharge Date/Time November 16, 2018 Patient Condition: Good Consults N/A Hx of Present Illness Ms. Melissa Weston is a 28-year-old 2, para 1, EDC 11/13/2018. Her at 40 weeks and 1 day gestational age, presented to triage early this morning in labor. She was 5 cm dilated. She reports of contractions since last night. She denies any vaginal bleeding or discharge. Her care took place at [facility]. PAST MEDICAL HISTORY: None. MEDICATIONS: vitamins. PAST SURGICAL HISTORY: None. OBSTETRICAL HISTORY: x1 vaginal delivery. GYNECOLOGIC HISTORY: 12, regular 3 to 4 days. Denies any sexually transmitted infections. Sexually active with 1 partner. SOCIAL HISTORY: Denies any smoking, drugs or alcohol. FAMILY HISTORY: None. REVIEW OF SYSTEMS: All within normal except history of present illness. PHYSICAL EXAMINATION: HEENT: Within normal. LUNGS: CTA bilateral. CARDIOVASCULAR: S1, S2, regular rhythm. ABDOMEN: Gravid, nontender. Negative CVA bilateral. EXTREMITIES: Negative. No calf tenderness. PELVIC: Vaginal exam 580 -2. heart rate category 1. [place] regular contractions. Estimated weight of approximately 4200 grams. ASSESSMENT: Intrauterine at 40 weeks and 1 day gestational age, in labor. PLAN: Anticipated vaginal delivery. Risks, benefits and alternatives explained secondary to shoulder dystocia. Dictated By: CIERRA GILMORE/SUZANNA Home Meds Reported Medications Vit #76/Iron,Carb/FA (Prenatabs Rx Tablet) 1 Each Tablet, 1 EACH PO DAILY, TAB 11/08/18 Ferrous Sulfate (Iron) 134 Mg Tablet, 134 MG PO DAILY, TAB 11/08/18 Calcium Carbonate* (Calcium Carbonate*) 600 MG Ca Tab, 600 MG PO DAILY, TAB 11/08/18 Primary Care Provider Care Physician No Primary Time spent on discharge: > 30 minutes MADAI WOODALL MD Nov 16, 2018 12:12
--- NOTE | 2018-11-16 12:32 | PN ---
Date/Time of Note Date/Time of Note DATE: 11/16/18 TIME: 12:31 OB Subjective Subjective Subjective Patient denies any complaint. Breast-feeding. Reports vaginal bleeding light. Ambulating. Urinated. Denies any depressive symptoms. OB Objective Objective Objective Appearance: Alert and oriented x4 does not appear to be in any acute distress Abdomen: Soft, fundus palpable firm and nontender to center below the umbilicus. Breast: No evidence of mastitis or fissure Extremity: No calf tenderness, no click no edema no cord palpable VS - Last 72 Hours, by Label Date Temp Pulse Resp B/P (MAP) Pulse Ox O2 O2 Flow FiO2 Time Delivery Rate 11/16/18 97.8 68 17 116/61 Room Air 03:51 (79) 11/15/18 97.7 64 17 121/73 Room Air 19:40 (89) 11/15/18 97.7 73 18 123/87 Room Air 16:00 (99) 11/15/18 97.9 66 18 99/56 (70) Room Air 08:00 11/15/18 97.6 59 18 94/53 (67) Room Air 03:34 11/14/18 97.4 64 18 121/71 Room Air 19:40 (88) 11/14/18 97.9 78 18 118/69 Room Air 16:00 (85) 11/14/18 97.8 76 17 137/82 Room Air 11:45 (100) 11/13/18 97.8 105 16 123/85 Room Air 22:47 (98) CBC & BMP 11/14/18 00:05 11/15/18 07:49 OB Assessment/Plan Other Assessment: Status post day #2 Mild anemia, asymptomatic, Stable for discharge. DC home today Follow-up in 6 weeks or sooner as needed Continue vitamin MADAI WOODALL MD Nov 16, 2018 12:32
--- NOTE | 2018-11-16 12:33 | PD.PPDC ---
HEAT TREAT OPERATOR Discharge Instruction Provider Information Physician Information Shaun Snow MD Condition [id number] Patient Condition: Owlmm2z Good Diet [id number] Diet: Uhore7o Resume Regular Diet Activity/Restrictions [id number] Activity: Qxlcu0m Normal Activity [id number] Restrictions: Ucfcl2d Nothing in the Vagina No [place] No Tampons, douche Follow-up Follow-up with Physician: 6, Week/Weeks Provider Information: Madai Woodall MD Return to clinic for [id number] BENZOL OPERATOR Instructions: [id number] Fever greater than 101 Chills Worsening abdominal pain Excessive Vaginal Bleeding More than 2 pads per hour Unable to tolerate diet [id number] OB Instructions: [id number] Breast Tenderness Depression Blurried Vision Headache MADAI WOODALL MD Nov 16, 2018 12:33
[2018-11-16] MEDS ORDERED: TUCKS PR (12:35)
[2018-11-16] MEDS ORDERED: IBUP-1542 PO (12:35)
[2018-11-16] MEDS ORDERED: Lanolin Hpa TOP (12:35)
--- NOTE | 2018-11-17 15:56 | DELSUM ---
Delivery Summary A-C Datetime Report Generated by CPN: 11/17/2018 15:56 DELIVERY PERSONNEL Cost Specialist: Steve, Margaux MATERNAL INFORMATION Delivery Anesthesia: Epidural Medications in Delivery: Oxytocin 30 units Delivery QBL (ml): 200 Placenta Cultured: No Maternal Complications: None LABOR SUMMARY EDC: 11/13/2018 00:00 No. Babies in Womb: 1 Attempted: No Labor Anesthesia: Epidural LABOR INFORMATION Reason for Induction: Not Applicable Onset of Labor: 11/13/2018 19:00 Complete Dilatation: 11/14/2018 08:53 Oxytocin: Augmentation [facility] B Beta Strep: Negative Antibiotics # of Doses: 0 Steroids Given: None Reason Steroids Not Administered: Not Applicable MEMBRANES Membranes Rupture Method: Artificial Rupture of Membranes: 11/14/2018 08:51 Length of Rupture (hr): 0.45 Amniotic Fluid Color: Clear Amniotic Fluid Amount: Moderate Amniotic Fluid Odor: None STAGES OF LABOR Stage 1 hr: 13 Stage 1 min: 53 Stage 2 hr: 0 Stage 2 min: 25 Stage 3 hr: 0 Stage 3 min: 3 Total Time in Labor hr: 14 Total Time in Labor min: 21 VAGINAL DELIVERY Episiotomy: None Laceration Extension: First Degree Laceration Type: Perineal Laceration Repair: Yes Initial Vag Sponge Count: 10 Final Vag Sponge Count: 10 Initial Vag Sharps Count: 1 Final Vag Sharps Count: 2 Sponge Count Correct: Yes Sharps Count Correct: Yes BABY A INFORMATION Delivery Date/Time: 11/14/2018 09:18 Method of Delivery: Vaginal Born in Route : No : N/A Forceps: N/A Vacuum Extraction: N/A Shoulder Dystocia : N/A SHOULDER DYSTOCIA BABY A Infant Delivery Date/Time: 11/14/2018 09:18 PRESENTATION/POSITION BABY A Presentation: Cephalic Cephalic Presentation: Vertex Vertex Position: Left Occipital Posterior Breech Presentation: N/A PLACENTA INFORMATION BABY A Placenta Delivery Time : 11/14/2018 09:21 Placenta Method of Delivery: Spontaneous Placenta Status: Delivered SCORES BABY A Heart Rate 1 min: >100 bpm Resp Effort 1 min: Good Cry Reflex Irritability 1 min: Cough/Sneeze/Pulls Away Muscle Tone 1 min: Active Motion Color 1 min: Body Trooper, Extremit Blue Resuscitation Effort 1 min: Tactile Stimulation SCORE 1 MIN: 9 Heart Rate 5 min: >100 bpm Resp Effort 5 min: Good Cry Reflex Irritability 5 min: Cough/Sneeze/Pulls Away Muscle Tone 5 min: Active Motion Color 5 min: Body Trooper, Extremit Blue Resuscitation Effort 5 min: Tactile Stimulation SCORE 5 MIN: 9 INFANT INFORMATION BABY A Gestational Age at Delivery: 40.1 Gestational Status: Full Term- 39- 40.6 Weeks Outcome : Liveborn Condition : Stable Sex: Male IDENTIFICATION/MEDS BABY A ID Band Number: [id number] ID Band Location: Right Leg; Left Arm Sensor Applied: Yes Sensor Number: [id number] Sensor Location : Cord Clamp Vitamin K Given : Not Given Erythromycin Given: Not Given WEIGHT/LENGTH BABY A Birthweight (gm): 4230 Weight (lb): 9 Infant Weight (oz): 5 Length (in): 20.50 Length (cm): 52.07 CORD INFORMATION BABY A No. Cord Vessels: 3 Nuchal Cord : N/A Infant Suction: Mouth; Nose ASSESSMENT BABY A Infant Complications: None Physical Findings at Delivery: Within Normal Limits Respirations: Appears Normal [place] Caller/ALS Called : Yes Care By: Tiffanie Anand Transferred To: Remains with Mother
== END 2018-11-16 15:55 | disposition home or self-care (01) | DRG 807 ==
LOC: OBT 22:10 → L-D 22:11 → OBT 23:00 → L-D 23:00 → OBV 11-14 06:35 → L-D 11-14 06:37 → PP1 11-14 11:41
PROVIDERS: ADMIT Obstetrics & Gynecology; ATTEND Obstetrics & Gynecology
PROC: 10E0XZZ Delivery of Products of Conception, External Approach (ICD-10-PCS; principal; 2018-11-14)
PROC: 0HQ9XZZ Repair Perineum Skin, External Approach (ICD-10-PCS; 2018-11-14)
DX: O70.0 First degree perineal laceration during delivery (principal); O90.81 Anemia of the puerperium; D64.9 Anemia, unspecified; Z37.0 Single live birth; Z3A.40 40 weeks gestation of pregnancy
CPT/HCPCS: 62322; 76815; 85025; 85610; 85730; 86592; 86850; 86900; 86901; 87340; G0463; J2210; J2590; J3010; J7120